=== PATIENT | male | born 1945 | race Caucasian/White ===

== ENCOUNTER → 2016-12-16 | Outpatient (CLI) | payer OTHER | LOC: FIMAGING 09:40 | PROVIDERS: ATTEND Internal Medicine Nephrology | DX: I10 Essential (primary) hypertension (principal); R80.9 Proteinuria, unspecified ==

== ENCOUNTER → 2017-04-15 | Outpatient (CLI) | payer OTHER | LOC: BHLMT 09:30 | PROVIDERS: ATTEND Internal Medicine Cardiovascular Disease | DX: I25.10 Atherosclerotic heart disease of native coronary artery without angina pectoris (principal); I15.2 Hypertension secondary to endocrine disorders | CPT/HCPCS: 78452; 93017; A9500 ==